=== PATIENT | female | born 1980 | race African-American/Black ===

== ENCOUNTER 2019-08-11 23:26 | Emergency (ER) | payer OTHER ==
[~2019-08-11] VITALS: Ht 162.6 cm; Wt 68.0 kg
[~2019-08-11 23:26] MED LIST: ACETAMINOPHEN-1 EAC1 PO; CEPHALEXIN 500500 M3 PO; IBUPROFEN 800800 M1 PO
[2019-08-11] MEDS ORDERED: NORVASC10 MG PO (23:32)
[2019-08-12 00:01] LABS: ABSOLUTE BASOPHILS 0.1 thou/uL (0.0-0.2); ABSOLUTE EOSINOPHILS 0.2 thou/uL (0.0-0.7); ABSOLUTE LYMPHOCYTES 3.9 thou/uL (0.8-5.3); ABSOLUTE MONOCYTES 0.9 thou/uL (0.0-1.2); ABSOLUTE NEUTROPHILS 4.2 thou/uL (1.6-8.1); BASOPHILS 0.8 %; EOSINOPHILS 1.8 %; HEMATOCRIT 36.3 % (37.0-47.0); HEMOGLOBIN 11.8 gm/dL (12.0-15.0); LYMPHOCYTES 42.6 %; MCH 23.8 pg (26.0-34.0); MCHC 32.6 g/dL (28.0-37.0); MCV 72.9 fL (80.0-100.0); MONOCYTES 9.8 %; MPV 8.2 fl. (7.2-11.1); NUCLEATED RBCS 0 /100WBC; PLATELET COUNT* 335 thou/uL (150-400); RBC 4.98 mil/uL (4.20-5.00); RDW-CV 16.4 % (10.5-14.5); WBC 9.2 thou/uL (4.0-11.0)
[2019-08-12 00:04] LABS: CALCIUM 9.2 mg/dL (8.5-10.1); CREATININE 0.9 mg/dL (0.6-1.3); POTASSIUM 3.6 mmol/L (3.5-5.1)
[2019-08-12 00:15] LABS: ALBUMIN 4.1 g/dL (3.4-5.0); MAGNESIUM 1.8 mg/dL (1.8-2.4); TOTAL BILIRUBIN 0.3 mg/dL (<0.1-1.0); TOTAL PROTEIN 8.4 g/dL (6.4-8.2)
[2019-08-12 02:05] VITALS: BP 150/107
--- NOTE | 2019-08-12 11:23 | EKG ---
[place] [address] ELECTROCARDIOGRAM REPORT Name: NANETTE ROSS Room: [facility]#: [id number] Admission: 08/11/19 Attend Phys: Discharge: 08/12/19 Date of : 84 Date of Service: 08/11/19 2329 Report #: [id number] THIS REPORT FOR: //name// [facility] ED Test Date: 2019-08-11 Test Time: 23:29:25 Pat Name: NANETTE ROSS Department: Room: Gender: Home H[facility] Rn: : 1980 Requested By: Navneet Edgar Order Number: [id number] MD: Sohail Nelson Measurements Intervals [place] Rate: 108 P: 27 OK: 200 QRS: -4 QRSD: 102 T: 40 QT: 327 QTc: 439 Interpretive Statements Sinus tachycardia Borderline prolonged OK interval Probable left atrial enlargement RSR' in V1 or V2, right VCD or RVH Baseline wander in lead(s) V3 No previous ECG available for comparison Electronically Signed On 08-12-2019 11:22:11 CDT by Sohail Nelson [email or web address] <ELECTRONICALLY SIGNED> By: Sohail Nelson MD, FACC 08/12/19 1122 2329 2329 Sohail Nelson MD, [facility] /EPI
== END 2019-08-12 02:05 | disposition home or self-care (01) ==
LOC: M.ERS 23:26
PROVIDERS: Emergency Medicine Emergency Medical Services
DX: R07.89 Other chest pain (principal); Z91.018 Allergy to other foods

== ENCOUNTER 2019-09-19 16:08 | Emergency (ER) | payer OTHER ==
[~2019-09-19] VITALS: Ht 162.6 cm; Wt 67.6 kg
[~2019-09-19 16:08] MED LIST changes: +NORVASC10 MG PO
[2019-09-19] MEDS ORDERED: NORCO 5-325 TA1 EAC1 PO (17:00)
[2019-09-19] MEDS ORDERED: IBUPROFEN 800800 M1 PO (17:00)
[2019-09-19 17:07] VITALS: BP 136/76
== END 2019-09-19 17:08 | disposition home or self-care (01) ==
LOC: M.ERS 16:08
DX: S69.91XA Unspecified injury of right wrist, hand and finger(s), initial encounter (principal); Z98.51 Tubal ligation status; Z91.018 Allergy to other foods; W22.03XA Walked into furniture, initial encounter; Y93.89 Activity, other specified; Y92.89 Other specified places as the place of occurrence of the external cause; Y99.8 Other external cause status

== ENCOUNTER 2020-12-23 18:18 | Emergency (ER) | payer OTHER, MEDICAID ==
[~2020-12-23] VITALS: Ht 162.6 cm; Wt 68.0 kg
[~2020-12-23 18:18] MED LIST changes: +NORCO 5-325 TA1 EAC1 PO
[2020-12-23] MEDS ORDERED: NORFLEX100 MG PO (19:24)
[2020-12-23 19:50] VITALS: BP 153/111
== END 2020-12-23 19:50 | disposition home or self-care (01) ==
LOC: M.ERS 18:18
DX: M62.830 Muscle spasm of back (principal); I10 Essential (primary) hypertension; Z98.51 Tubal ligation status; Z79.899 Other long term (current) drug therapy; Z91.018 Allergy to other foods